=== PATIENT | male | born 1945 | race Caucasian/White ===

== ENCOUNTER 2020-02-10 15:34 | Emergency (ER) | payer MEDICARE, OTHER ==
[~2020-02-10] VITALS: Ht 177.8 cm; Wt 102.1 kg
[2020-02-10] MEDS ORDERED: SIMVASTATIN40 MG PO (16:10)
[2020-02-10] MEDS ORDERED: LISINOPRIL20 MG PO (16:10)
[2020-02-10] MEDS ORDERED: OPTIFLEX-C400 MG PO (16:11)
[2020-02-10] MEDS ORDERED: OMEPRAZOLE20 M1 PO (16:11)
--- NOTE | 2020-02-11 15:38 | EKG ---
[facility] [address] [facility] [place] [address] Signed Normal sinus rhythm Minimal voltage criteria for LVH, may be normal variant Borderline ECG No previous ECGs available Confirmed by LAUREL GILMORE MD ([id number]) on 02/11/2020 3:38:16 PM Electronically Signed By: LAUREL GILMORE MD 02/11/20 1538 PATIENT NAME: ISIAH COX J Electrocardiogram DATE OF : 49 PHYSICIAN: LAUREL GILMORE MD REPORT #: [id number] REPORT IS CONFIDENTIAL AND NOT TO BE RELEASED WITHOUT AUTHORIZATION
== END 2020-02-10 17:56 | disposition home or self-care (01) ==
LOC: ED 15:34
DX: T67.5XXA Heat exhaustion, unspecified, initial encounter (principal); R41.82 Altered mental status, unspecified; I10 Essential (primary) hypertension; K21.9 Gastro-esophageal reflux disease without esophagitis; Z88.2 Allergy status to sulfonamides; Z79.899 Other long term (current) drug therapy
CPT/HCPCS: 70450; 70496; 70498; 80053; 81001; 83735; 84484; 85025; 93005; 93010; 99285-25; Q9967

== ENCOUNTER 2021-06-26 06:19 | Day surgery (SDC) | payer OTHER ==
[~2021-06-26] VITALS: Ht 177.8 cm; Wt 103.9 kg
[~2021-06-26 06:19] MED LIST: BAYER CHEWABLE81 MG PO; CRESTOR20 MG PO; DICLOFENAC35 MG PO; LISINOPRIL20 MG PO; OMEGA 3 1,0001 EACH PO; OMEPRAZOLE20 M1 PO; OPTIFLEX-C400 MG PO; OSTEO BI-FLEX1 EACH PO; SIMVASTATIN40 MG PO; VITAMIN B COMP1 EACH PO; VITAMIN D250 MCG PO
--- NOTE | 2021-06-26 08:08 | NUR ---
06/26/21 0808 Katie Catalan 0802 PATIENT ARRIVES TO PACU RESTING WITH EYES CLOSED. RESP EVEN AND UNLABORED, NC AT 3 LITERS. 0807 PATIENT AWAKE, DRINKING APPLE JUICE. PASSING GAS. RESP EVEN AND UNLABORED, NC CONTINUED AT 3 LITERS. PATIENT DENIES PAIN.
--- NOTE | 2021-06-27 09:44 | OR ---
[facility] [address] [place], [place] [address] Signed DATE OF OPERATION: 06/26/2021 SURGEON: Kate High MD PREOPERATIVE DIAGNOSES: 1. Sigmoid diverticulosis. 2. Hyperplastic polyps. 3. Screening. POSTOPERATIVE DIAGNOSES: 1. Moderate sigmoid diverticulosis. 2. Minimal to moderate internal hemorrhoids. 3. 4 mm polyp, distal right colon. 4. 4 mm polyp at 4 cm. PROCEDURE: Colonoscopy with hot biopsy. ESTIMATED BLOOD LOSS: None. INDICATIONS: Tyler is a 75-year-old gentleman asked to see me for a followup colonoscopy. He underwent colonoscopy in 2002 at the age of 57 for screening purposes with Dr. Mathieu Wagner. Dr. Wagner mentions the possibility of small shallow ulcers in the cecum from NSAIDs. I performed a colonoscopy in 2009 for Tyler at the age of 64. He had guaiac positive stool. There was sigmoid diverticulosis along with two small hyperplastic polyps. He returns now for followup colonoscopy. He is one year late because of a COVID pandemic. There is no family history of colon cancer or polyps. No specific lower GI complaints. In the office, I gave Mari pamphlet on colonoscopy. He understands the nature of the test. There is risk including, but not limited to gas bloating, crampy abdominal pain, bleeding, perforation requiring surgery, and missed diagnosis. He also understands the need for IV conscious sedation. He has done well with Versed and fentanyl in the past. He had expressed understanding and wished to proceed. PROCEDURE NOTE: Tyler was taken into our endoscopy suite and placed in the left lateral decubitus position. He was given a total of 8 mg of Versed and 150 mcg of fentanyl to cover the case. A digital rectal exam was performed and of course, he has moderate induration and Electronically Signed By: KATE HIGH MD 06/27/21 0944 PATIENT NAME: TYLER COX OPERATIVE REPORT DATE OF : 49 REPORT #: [id number] PHYSICIAN: KATE HIGH MD PCP: SUNITHA VAUGHN MD REPORT IS CONFIDENTIAL AND NOT TO BE RELEASED WITHOUT AUTHORIZATION [facility] [address] [place], [place] [address] Signed swelling to his prostate gland. The adult colonoscope was introduced and advanced under direct visualization of camera. He does have moderate sigmoid diverticulosis. They were moderate in number, moderate in size and scattered about. He had some angulation and narrowing in that sigmoid colon, so took a few extra minutes to get through into the left colon. After that, the scope passed fairly nicely right up to the cecum. It took a little extra sedation abdominal compression and rolling Tyler into the supine position in order to get the camera directly into the cecum itself. His prep was quite excellent. We could easily see the appendiceal orifice and the ileocecal valve. The scope was then slowly withdrawn. We took pictures throughout for photodocumentation. The above-mentioned polyps were easily removed with the help of hot biopsy forceps. Upon retroflexion of scope in the rectum, he does have minimal to moderate internal hemorrhoids. After this, the gas was suctioned out and colonoscope removed. Tyler tolerated procedure quite well. RECOMMENDATIONS: I will see Tyler back in my office in 7 to 14 days to review his results. I suspect he will stay on the 10-year plan. Kate High MD ALB/MODL /[id number] cc: MD Mecca Moran MD Copies: KATE HIGH MD,SUNITHA PLASCENCIA MD ~ Electronically Signed By: KATE HIGH MD 06/27/21 0944 PATIENT NAME: TYLER COX OPERATIVE REPORT DATE OF : 49 REPORT #: [id number] PHYSICIAN: KATE HIGH MD PCP: SUNITHA VAUGHN MD REPORT IS CONFIDENTIAL AND NOT TO BE RELEASED WITHOUT AUTHORIZATION
--- NOTE | 2021-06-27 14:01 | PATH ---
[facility] [address] [place], [place] [address] Signed SPECIMEN(S): A DISTAL RIGHT COLON POLYP SPECIMEN(S): B RECTAL POLYP AT 4 CM SPECIMEN SOURCE: A. DISTAL RIGHT COLON POLYP B. RECTAL POLYP AT 4 CM CLINICAL HISTORY: Follow-up colonoscopy for history of polyps, internal hemorrhoids, diverticulosis, colon polyps. MICROSCOPIC DESCRIPTION: Histologic sections of all submitted blocks are examined by light microscopy. These findings, together with the gross examination, support the pathologic diagnosis. FINAL PATHOLOGIC DIAGNOSIS: A. Colon, distal right, polypectomy: - Colonic mucosa with a lymphoid aggregate. B. Rectum, 4 cm, polypectomy: - Hyperplastic polyp. BRP:cml:C2NR GROSS DESCRIPTION: Two specimens are received in two containers, labeled "MB." A. The specimen, labeled "MB, distal ascending colon polyp," is received in formalin and consists of one arzate soft tissue fragment that measures 0.2 cm in greatest dimension. The specimen is entirely submitted in cassette (A1). B. The specimen, labeled "MB, rectal polyp at 4 cm," is received in formalin and consists of one arzate soft tissue fragment that measures 0.1 cm in greatest dimension. The specimen is entirely submitted in cassette (B1). JS (under the direct supervision of a pathologist) The Gross Description was prepared using a voice recognition system. The report was reviewed for accuracy; however, sound-alike word errors, addition and/or deletions may occur. If there is any question about this report, please contact Client Services. PERFORMING LABORATORY: The technical component was performed by [facility], [address] [place] [id number] (V Block Saw Operator: Jeanne Del Valle MD; CLIA# [id number]). PATIENT NAME: ISIAH COX PATHOLOGY DATE OF : 49 REPORT #: [id number] PHYSICIAN: BAR PATHOLOGY PCP: SUNITHA VAUGHN MD REPORT IS CONFIDENTIAL AND NOT TO BE RELEASED WITHOUT AUTHORIZATION [facility] [address] [place], [place] [address] Signed [facility], [address] [place] [id number] (CLIA# [id number]). Diagnostician: Srinivasan Busby MD Pathologist Electronically Signed 06/27/2021 Copies: ~ PATIENT NAME: ISIAH COX PATHOLOGY DATE OF : 49 REPORT #: [id number] PHYSICIAN: BAR MEJÍA PCP: SUNITHA VAUGHN MD REPORT IS CONFIDENTIAL AND NOT TO BE RELEASED WITHOUT AUTHORIZATION
== END 2021-06-26 08:35 | disposition home or self-care (01) ==
LOC: OPS 06:19 → DS 06:19 → OPS 07:30
PROVIDERS: ATTEND Colon & Rectal Surgery
PROC: 0DBP8ZX Excision of Rectum, Via Natural or Artificial Opening Endoscopic, Diagnostic (ICD-10-PCS; 2021-06-26)
PROC: 0DBM8ZX Excision of Descending Colon, Via Natural or Artificial Opening Endoscopic, Diagnostic (ICD-10-PCS; principal; 2021-06-26 07:30)
DX: K63.5 Polyp of colon (principal); K62.1 Rectal polyp; K57.30 Diverticulosis of large intestine without perforation or abscess without bleeding; I10 Essential (primary) hypertension; E78.5 Hyperlipidemia, unspecified; K21.9 Gastro-esophageal reflux disease without esophagitis; F17.220 Nicotine dependence, chewing tobacco, uncomplicated; Z88.1 Allergy status to other antibiotic agents; K64.8 Other hemorrhoids
CPT/HCPCS: 99153; G0500; J2250; J3010; J7121